=== PATIENT | male | born 1995 | race Caucasian/White ===

== ENCOUNTER 2021-02-20 14:06 | Emergency (ER) | payer MEDICAID, OTHER ==
[~2021-02-20] VITALS: Ht 177.8 cm; Wt 81.6 kg
[2021-02-20 14:13] VITALS: BP 122/80
[2021-02-20] MEDS ORDERED: AMOX500C2 PO (15:06)
[2021-02-20] MEDS ORDERED: P-EP-92 PO (15:07)
== END 2021-02-20 15:13 | disposition home or self-care (01) ==
LOC: ER 14:17
DX: J32.0 Chronic maxillary sinusitis (principal); Z90.89 Acquired absence of other organs